=== PATIENT | male | born 1990 | race Caucasian/White ===

== ENCOUNTER 2018-12-05 12:58 | Emergency (ER) | payer SELFPAY ==
[~2018-12-05] VITALS: Ht 172.7 cm; Wt 88.0 kg
[2018-12-05] MEDS ORDERED: IBUPROFEN 600MG TABLET PO STA (13:31)
[2018-12-05 14:30] VITALS: BP 133/78
== END 2018-12-05 14:31 | disposition home or self-care (01) ==
LOC: ER 12:58
DX: F17.210 Nicotine dependence, cigarettes, uncomplicated (principal); B34.9 Viral infection, unspecified; R05 Cough
CPT/HCPCS: 71045; 99283